=== PATIENT | female | born 1955 | race Caucasian/White ===

== ENCOUNTER 2016-10-07 20:46 | Observation (INO) | payer OTHER ==
[~2016-10-07] VITALS: Ht 165.1 cm; Wt 100.7 kg
--- NOTE | 2016-10-07 21:46 | DIAGNOSTIC IMAGING REPORT ---
PROCEDURE: XR ANKLE 3 OR 4 VIEWS - RIGHT INDICATION: TRAUMA/INJURY TECHNIQUE: Four views. COMPARISON: None. FINDINGS: External densities (splint) obscures some of the detail. There is a severely comminuted trimalleolar fracture posterior dislocation of the right ankle. There is a transverse fracture the medial malleolus extending to the posterior malleolus with moderate impaction and dorsal there is displacement. There is a comminuted oblique fracture the right distal fibular metaphysis with moderate apical angulation. There is a vertical fracture the posterior malleolus which extends cranially. IMPRESSION: 1. Severely comminuted trimalleolar fracture posterior dislocation of the right ankle.
--- NOTE | 2016-10-07 23:27 | DIAGNOSTIC IMAGING REPORT ---
PROCEDURE: XR ANKLE 1 OR 2 VIEWS - RIGHT INDICATION: POST REDUCTION TECHNIQUE: Two views. (2225 hours). COMPARISON: Compare radiographs of the right ankle earlier in the day 10/07/2016 (2115 hours). FINDINGS: Cast obscures some of the detail. Interval reduction of trimalleolar fracture dislocation which is now in near anatomic position with mild splaying of fracture fragments. IMPRESSION: 1. Interim reduction and casting of trimalleolar fracture dislocation of the right ankle (near anatomic position).
--- NOTE | 2016-10-07 23:28 | ED ORDER SUMMARY ---
..... Patient: KAREN HOWARD OrderSheet [facility] VisitID: [id number] [address] [place] [address] 61y, F Registration Date/Time: 10/07/2016 ORDER SHEET Weight: 97.0 kg (stated) Allergies: No Known Drug Allergy GENERAL ORDERS: Ankle 3 or 4V Right Urgent (20:48 10/07/2016 Tk R.NAnita verbal order read back to Jamin ROTHMAN) (Ack 21:14 Wil) (21:41 GUnger) Ice (20:59 10/07/2016 Tk HamptonNAnita verbal order read back to Jamin ROTHMAN) (20:59 Tk R.N.) Consent for: (closed fracture dislocation reduction) (21:42 10/07/2016 Marcela Abdalla) (Ack 21:51 Wil) (22:05 JQuivey R.N.) CBC w Diff Urgent (21:43 10/07/2016 Marcela Abdalla) (Ack 21:51 Wil) (22:05 JQuivey R.N.) CMP Urgent (21:43 10/07/2016 Marcela Abdalla) (Ack 21:51 Wil) (22:05 JQuivey R.N.) UA-Culture if indicated Urgent (21:43 10/07/2016 Marcela Abdalla) (Ack 21:51 Wil) (1:38 Tk R.N.) (Cancelled: Unable to Collect1:38 Tk R.N.) PT with INR Urgent (21:43 10/07/2016 Marcela Abdalla) (Ack 21:51 Wil) (22:05 JQuivey R.N.) PTT Urgent (21:43 10/07/2016 Marcela Abdalla) (Ack 21:51 Wil) (22:05 JQuivey R.N.) Consent for Sedation (21:43 10/07/2016 Marcela Abdalla) (Ack 21:51 Wil) (22:05 JQuivey R.N.) Ankle 2V Right Urgent (22:28 10/07/2016 JQuivey R.N. per protocol) (Ack 22:43 Wil) (22:44 JQuivey R.N.) Chest 2V Urgent (23:56 10/07/2016 Wil verbal order read back to Marcela Abadlla) (Ack 0:07 Wil) (0:18 GUnger) EKG - ER Stat (00:00 10/08/2016 Wil verbal order read back to Marcela Abdalla) (0:07 Wil) MEDICATION ORDERS: Iiqwebo-Cebzzb-Fdxyw Pertussis IM 0.5 mL (NOW, per protocol) (21:08 10/07/2016 Marcela Abdalla) (Ack 21:20 JQuivey R.N.) (21:31 JRomanelli R.N.) IV FLUIDS: Morphine IV 4 mg (HIGH ALERT MEDICATION, NOW) (21:07 10/07/2016 Marcela Abdalla) (Ack 21:20 JQuivey R.N.) (21:29 JRomanelli R.N.) IV Saline Lock (21:07 10/07/2016 Marcela Abdalla) (Ack 21:20 JQuivey R.N.) (21:28 JRomanelli R.N.) Propofol IV 100 (HIGH ALERT MEDICATION, NOW) (22:44 10/07/2016 JRomanelli R.N. verbal order read back to Marcela Abdalla) (22:46 JQuivey R.N.) Morphine IV 4 mg (HIGH ALERT MEDICATION, NOW) (22:48 10/07/2016 RMarsden R.N. verbal order read back to Marcela Abdalla) (22:49 RMarsden R.N.) ORDER SHEET NOTES: [Electronically signed by Jacquelin Ambriz P.A.-C (22:48 10/07/2016)] [Electronically signed by Dyllan Savage R.N. (01:38 10/08/2016)] [Electronically locked/signed by Dyllan Savage R.N. (01:38 10/08/2016)]
--- NOTE | 2016-10-07 23:28 | ED ORDER SUMMARY ---
..... Patient: KAREN HOWARD OrderSheet [facility] VisitID: [id number] [address] [place] [address] 61y, F Registration Date/Time: 10/07/2016 ORDER SHEET Weight: 97.0 kg (stated) Allergies: No Known Drug Allergy GENERAL ORDERS: Ankle 3 or 4V Right Urgent (20:48 10/07/2016 Tk R.NAnita verbal order read back to Jamin ROTHMAN) (Ack 21:14 Wil) (21:41 GUnger) Ice (20:59 10/07/2016 Tk HamptonNAnita verbal order read back to Jamin ROTHMAN) (20:59 Tk R.N.) Consent for: (closed fracture dislocation reduction) (21:42 10/07/2016 Marcela Abdalla) (Ack 21:51 Wil) (22:05 JQuivey R.N.) CBC w Diff Urgent (21:43 10/07/2016 Marcela Abdalla) (Ack 21:51 Wil) (22:05 JQuivey R.N.) CMP Urgent (21:43 10/07/2016 Marcela Abdalla) (Ack 21:51 Wil) (22:05 JQuivey R.N.) UA-Culture if indicated Urgent (21:43 10/07/2016 Marcela Abdalla) (Ack 21:51 Wil) (1:38 Tk R.N.) (Cancelled: Unable to Collect1:38 Tk R.N.) PT with INR Urgent (21:43 10/07/2016 Marcela Abdalla) (Ack 21:51 Wil) (22:05 JQuivey R.N.) PTT Urgent (21:43 10/07/2016 Marcela Abdalla) (Ack 21:51 Wil) (22:05 JQuivey R.N.) Consent for Sedation (21:43 10/07/2016 Marcela Abdalla) (Ack 21:51 Wil) (22:05 JQuivey R.N.) Ankle 2V Right Urgent (22:28 10/07/2016 JQuivey R.N. per protocol) (Ack 22:43 Wil) (22:44 JQuivey R.N.) Chest 2V Urgent (23:56 10/07/2016 Wil verbal order read back to Marcela Abdalla) (Ack 0:07 Wil) (0:18 GUnger) EKG - ER Stat (00:00 10/08/2016 Wil verbal order read back to Marcela Abdalla) (0:07 Wil) MEDICATION ORDERS: Tspnonn-Ngzjwd-Tdyxg Pertussis IM 0.5 mL (NOW, per protocol) (21:08 10/07/2016 Marcela Abdalla) (Ack 21:20 JQuivey R.N.) (21:31 JRomanelli R.N.) IV FLUIDS: Morphine IV 4 mg (HIGH ALERT MEDICATION, NOW) (21:07 10/07/2016 Marcela Abdalla) (Ack 21:20 JQuivey R.N.) (21:29 JRomanelli R.N.) IV Saline Lock (21:07 10/07/2016 Marcela Abdalla) (Ack 21:20 JQuivey R.N.) (21:28 JRomanelli R.N.) Propofol IV 100 (HIGH ALERT MEDICATION, NOW) (22:44 10/07/2016 JRomanelli R.N. verbal order read back to Marcela Abdalla) (22:46 JQuivey R.N.) Morphine IV 4 mg (HIGH ALERT MEDICATION, NOW) (22:48 10/07/2016 RMarsden R.N. verbal order read back to Marcela Abdalla) (22:49 RMarsden R.N.) ORDER SHEET NOTES: [Electronically signed by Jacquelin Ambriz P.A.-C (22:48 10/07/2016)] [Electronically signed by Dyllan Savage R.N. (01:38 10/08/2016)] [Electronically locked/signed by Dyllan Savage R.N. (01:38 10/08/2016)]
--- NOTE | 2016-10-07 23:28 | ED NURSING NOTES ---
Clinical Report - Nurses Located Within [facility] [address] [place] [place] [address] 10/07/2016 20:46 Patient: KAREN HOWARD [facility]#: [id number] TRIAGE Triage time 20:49 Oct 07 2016. Acuity: LEVEL 3. Chief Complaint: INJURY TO RIGHT ANKLE. Alert. JERICA COMA SCORE: [place] Coma Scale: 15- eyes open spontaneously (4); best verbal response- oriented x 4 (5); best motor response- obeys commands (6). Jerica Coma Scale: 15- eyes open spontaneously (4); best verbal response- oriented x 4 (5); best motor response- obeys commands (6). --20:56 Dyllan Savage R.N. 20:49 10/07/16. BP: 137/77. HR: 67. RR: 17. O2 saturation: 100% on room air. Temp: 98.5 F (oral). Pain level now: 810. --20:56 Dyllan Savage R.N. Weight: 97 kg stated. Height/Length: 65 inches Per Patient. BMI: 35.6. --20:53 Dyllan Savage R.N. Medications Multivitamins Oral. --20:54 Dyllan Savage R.N. Vitamin B-1 Oral. Vitamin c Oral. Vitamin D Oral. --20:55 Dyllan Savage R.N. Medication/allergy information source: the patient. --20:56 Dyllan Savage R.N. Allergies No Known Drug Allergy. --20:55 Dyllan Savage R.N. History Arrived by private vehicle. Historian: patient. Accompanied by family. ( (R) Ankle Pain. Pt tripped over a pot in her garden. She thinks that she might have dislocated it.). This occurred (about 1 hour ago). Mechanism of injury: sustained a twisting injury and fell. She has had trouble walking. 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 PAST MEDICAL HX: Negative. SURGERY HX: Adenoidectomy. Appendectomy. Tonsillectomy. SOCIAL HX: Heavy tobacco smoker (cigarette)- less than 1 pack per day. No alcohol use or drug use. No infectious disease exposure. ABUSE ASSESSMENT: No report of abuse. FALL RISK ASSESSMENT: Fall risk assessment completed. No fall risk identified. NUTRITIONAL RISK ASSESSMENT: The nutritional risk assessment revealed no deficiencies. FUNCTIONAL ASSESSMENT: Functional assessment: no impairments noted. LEARNING NEEDS ASSESSMENT: The learning needs assessment revealed no barriers. SKIN INTEGRITY ASSESSMENT: Skin integrity risk assessment completed. No skin integrity risk identified. --20:56 Dyllan Savage R.N. Interventions ID band on patient. To room. --20:56 Dyllan Savage R.N. PHYSICAL ASSESSMENT Ambulatory to room. GENERAL / NEURO / PSYCH: Appears in pain. She has had weakness. EXTREMITIES: Limited ROM present in the right ankle. Capillary refill is less than 2 seconds in the extremities. Extremity pulses are within normal limits. She was unable to bear weight. Right ankle: tenderness and swelling. SKIN: Skin intact. Skin is warm and dry. --20:57 Dyllan Savage R.N. NURSING PROGRESS NOTES Cold pack applied to the right ankle. Patient gowned. Reassurance given. Patient identifiers checked. Call light placed in reach. Side rails up x 2. Bed placed in lowest position. Brakes of bed on. Patient ready for evaluation- chart flagged and ED physician notified. --20:58 Dyllan Savage R.N. 21:19 10/07/2016 Morphine IVP 4 mg given over 2 minute(s) via site #1. Allergies verified, confirmed 5 rights and sedative warning given. IV patency established. IV site checked: no pain, redness, or swelling. IV flushed thoroughly pre- and post-medication administration. IVP given by RN. --21:29 Dyllan Savage R.N. 21:25 10/07/2016 Site #1 started via IV in the right forearm with an 22g angiocath, with aseptic technique and good blood return; one attempt. Blood drawn: rainbow set. Labeled in the presence of the patient and sent to the lab. Saline lock flushed with 10 mL saline. --21:28 Dyllan Savage R.N. 21:26 10/07/2016 RBICEZY-WXXWZZ-KEXCE PERTUSSIS IM 0.5 mL given. (Lot#: [id number], expiration date: 09/19/2018, Consultant Teacher: sanofi pasteur). Given in the left deltoid. Allergies verified and confirmed 5 rights. Vaccine information statement provided to the patient. --21:31 Dyllan Savage R.N. 22:29 10/07/2016 PROPOFOL IVP 100 mg given over 1 minute(s) via site #1. Allergies verified and confirmed 5 rights. IV patency established. IV site checked: no pain, redness, or swelling. IV flushed thoroughly pre- and post-medication administration. IVP given by physician (Given by Dr. Bueno). --22:46 Dyllan Terrazas R.N. 22:49 10/07/2016 Morphine IVP 4 mg given over 2 minute(s) via site #1. Allergies verified, confirmed 5 rights and sedative warning given to the patient. IV patency established. IV site checked: no pain, redness, or swelling. IV flushed thoroughly pre- and post-medication administration. IVP given by RN. --22:49 Lupe Thomason R.N. 22:29 Procedural sedation - see paper flow sheet. --22:53 Dyllan Terrazas R.N. EKG time: (2). EKG was ordered, performed by a tech and shown to the ED physician. --00:21 Hilary Sanderson 00:45 10/08/16. BP: 155/69. HR: 72. RR: 15. O2 saturation: 98% on room air. Pain level now: 06/21. --01:30 Dyllan Savage R.N. 00:00 10/08/16. BP: 114/64. HR: 67 (regular and normal rate). RR: 16. O2 saturation: 99%. Pain level now: 06/21. --01:32 Dyllan Savage R.N. DISPOSITION / DISCHARGE 01:00 10/08/16. BP: 122/60. HR: 68. RR: 17. O2 saturation: 98% on room air. Temp: 98.6 F. Pain level now: 06/21. Additional comments: (R) Ankle pain. --01:26 Dyllan Savage R.N. Departure time: 0105. --01:26 Hussein, Dyllan, R.N. 01:05. Admitted to Acute Care. Transported via stretcher. Report was given to a nurse via a phone call. Report included patient's care, treatment, medications, reviewed medication reconcilliation, and condition (including any recent changes or anticipated changes). All questions were answered. Report was acknowledged and care was transferred. (TONE Romero). Patient's personal items; items were placed in belongings bag and transported with the patient. --01:29 Dyllan Savage R.N. Locked/Released at 10/08/2016 1:38 by Dyllan Savage R.N.
--- NOTE | 2016-10-07 23:28 | ED NURSING NOTES ---
Clinical Report - Nurses [facility] [address] [place] [address] 10/07/2016 20:46 Patient: KAREN HOWARD [facility]#: [id number] TRIAGE Triage time 20:49 Oct 07 2016. Acuity: LEVEL 3. Chief Complaint: INJURY TO RIGHT ANKLE. Alert. JERICA COMA SCORE: [place] Coma Scale: 15- eyes open spontaneously (4); best verbal response- oriented x 4 (5); best motor response- obeys commands (6). Jerica Coma Scale: 15- eyes open spontaneously (4); best verbal response- oriented x 4 (5); best motor response- obeys commands (6). --20:56 Dyllan Savage R.N. 20:49 10/07/16. BP: 137/77. HR: 67. RR: 17. O2 saturation: 100% on room air. Temp: 98.5 F (oral). Pain level now: 810. --20:56 Dyllan Savage R.N. Weight: 97 kg stated. Height/Length: 65 inches Per Patient. BMI: 35.6. --20:53 Dyllan Savage R.N. Medications Multivitamins Oral. --20:54 Dyllan Savage R.N. Vitamin B-1 Oral. Vitamin c Oral. Vitamin D Oral. --20:55 Dyllan Savage R.N. Medication/allergy information source: the patient. --20:56 Dyllan Savage R.N. Allergies No Known Drug Allergy. --20:55 Dyllan Savage R.N. History Arrived by private vehicle. Historian: patient. Accompanied by family. ( (R) Ankle Pain. Pt tripped over a pot in her garden. She thinks that she might have dislocated it.). This occurred (about 1 hour ago). Mechanism of injury: sustained a twisting injury and fell. She has had trouble walking. 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 PAST MEDICAL HX: Negative. SURGERY HX: Adenoidectomy. Appendectomy. Tonsillectomy. SOCIAL HX: Heavy tobacco smoker (cigarette)- less than 1 pack per day. No alcohol use or drug use. No infectious disease exposure. ABUSE ASSESSMENT: No report of abuse. FALL RISK ASSESSMENT: Fall risk assessment completed. No fall risk identified. NUTRITIONAL RISK ASSESSMENT: The nutritional risk assessment revealed no deficiencies. FUNCTIONAL ASSESSMENT: Functional assessment: no impairments noted. LEARNING NEEDS ASSESSMENT: The learning needs assessment revealed no barriers. SKIN INTEGRITY ASSESSMENT: Skin integrity risk assessment completed. No skin integrity risk identified. --20:56 Dyllan Savage R.N. Interventions ID band on patient. To room. --20:56 Dyllan Savage R.N. PHYSICAL ASSESSMENT Ambulatory to room. GENERAL / NEURO / PSYCH: Appears in pain. She has had weakness. EXTREMITIES: Limited ROM present in the right ankle. Capillary refill is less than 2 seconds in the extremities. Extremity pulses are within normal limits. She was unable to bear weight. Right ankle: tenderness and swelling. SKIN: Skin intact. Skin is warm and dry. --20:57 Dyllan Savage R.N. NURSING PROGRESS NOTES Cold pack applied to the right ankle. Patient gowned. Reassurance given. Patient identifiers checked. Call light placed in reach. Side rails up x 2. Bed placed in lowest position. Brakes of bed on. Patient ready for evaluation- chart flagged and ED physician notified. --20:58 Dyllan Savage R.N. 21:19 10/07/2016 Morphine IVP 4 mg given over 2 minute(s) via site #1. Allergies verified, confirmed 5 rights and sedative warning given. IV patency established. IV site checked: no pain, redness, or swelling. IV flushed thoroughly pre- and post-medication administration. IVP given by RN. --21:29 Dyllan Savage R.N. 21:25 10/07/2016 Site #1 started via IV in the right forearm with an 22g angiocath, with aseptic technique and good blood return; one attempt. Blood drawn: rainbow set. Labeled in the presence of the patient and sent to the lab. Saline lock flushed with 10 mL saline. --21:28 Dyllan Savage R.N. 21:26 10/07/2016 IURNGAW-PKOBBY-GLSRQ PERTUSSIS IM 0.5 mL given. (Lot#: [id number], expiration date: 09/19/2018, Master At Arms: sanofi pasteur). Given in the left deltoid. Allergies verified and confirmed 5 rights. Vaccine information statement provided to the patient. --21:31 Dyllan Savage R.N. 22:29 10/07/2016 PROPOFOL IVP 100 mg given over 1 minute(s) via site #1. Allergies verified and confirmed 5 rights. IV patency established. IV site checked: no pain, redness, or swelling. IV flushed thoroughly pre- and post-medication administration. IVP given by physician (Given by Dr. Bueno). --22:46 Dyllan Terrazas R.N. 22:49 10/07/2016 Morphine IVP 4 mg given over 2 minute(s) via site #1. Allergies verified, confirmed 5 rights and sedative warning given to the patient. IV patency established. IV site checked: no pain, redness, or swelling. IV flushed thoroughly pre- and post-medication administration. IVP given by RN. --22:49 Lupe Thomason R.N. 22:29 Procedural sedation - see paper flow sheet. --22:53 Dyllan Terrazas R.N. EKG time: (2). EKG was ordered, performed by a tech and shown to the ED physician. --00:21 Hilary Sanderson 00:45 10/08/16. BP: 155/69. HR: 72. RR: 15. O2 saturation: 98% on room air. Pain level now: 06/21. --01:30 Dyllan Savage R.N. 00:00 10/08/16. BP: 114/64. HR: 67 (regular and normal rate). RR: 16. O2 saturation: 99%. Pain level now: 06/21. --01:32 Dyllan Savage R.N. DISPOSITION / DISCHARGE 01:00 10/08/16. BP: 122/60. HR: 68. RR: 17. O2 saturation: 98% on room air. Temp: 98.6 F. Pain level now: 06/21. Additional comments: (R) Ankle pain. --01:26 Dyllan Savage R.N. Departure time: 0105. --01:26 Hussein, Dyllan, R.N. 01:05. Admitted to Acute Care. Transported via stretcher. Report was given to a nurse via a phone call. Report included patient's care, treatment, medications, reviewed medication reconcilliation, and condition (including any recent changes or anticipated changes). All questions were answered. Report was acknowledged and care was transferred. (TONE Romero). Patient's personal items; items were placed in belongings bag and transported with the patient. --01:29 Dyllan Savage R.N. Locked/Released at 10/08/2016 1:38 by Dyllan Savage R.N.
--- NOTE | 2016-10-07 23:28 | ED CLINICAL REPORT ---
Clinical Report - Physicians/Mid Levels [facility] [address] [place] [address] 10/07/2016 20:46 [id number] Time Seen: 2229. PROGRESS AND PROCEDURES Reduction of Dislocated Ankle: Time: 2234Oct 07 2016. Time-out completed immediately before the procedure. IV established. O2 administered. Placed on pulse oximeter and vehicle monitor technician. Neurovascular exam intact pre-procedure and dorsalis pedis pulse present pre-procedure. Given Morphine and Propofol. The right ankle was reduced with the foot dorsiflexed, pressure on the distal tibia downward and movement of the foot anteriorly. Reassessed post-procedure: neurovascular status intact; exam indicates reduction; confirmed reduction on X-ray; posterior splint applied. Please see Procedural Sedation NOTE For further details. Course of Care: PROCEDURE NOTE ONLY. (Electronically signed by Jacquelin Ambriz P.A.-C 10/07/2016 22:48)
--- NOTE | 2016-10-07 23:28 | ED CLINICAL REPORT ---
Clinical Report - Physicians/Mid Levels [facility] [address] [place] [address] 10/07/2016 20:46 [id number] Time Seen: 2229. PROGRESS AND PROCEDURES Reduction of Dislocated Ankle: Time: 2234Oct 07 2016. Time-out completed immediately before the procedure. IV established. O2 administered. Placed on pulse oximeter and electronic device monitor. Neurovascular exam intact pre-procedure and dorsalis pedis pulse present pre-procedure. Given Morphine and Propofol. The right ankle was reduced with the foot dorsiflexed, pressure on the distal tibia downward and movement of the foot anteriorly. Reassessed post-procedure: neurovascular status intact; exam indicates reduction; confirmed reduction on X-ray; posterior splint applied. Please see Procedural Sedation NOTE For further details. Course of Care: PROCEDURE NOTE ONLY. (Electronically signed by Jacquelin Ambriz P.A.-C 10/07/2016 22:48)
[2016-10-08] VITALS (13 sets, daily range): BP systolic 101–134; BP diastolic 54–76
--- NOTE | 2016-10-08 00:45 | DIAGNOSTIC IMAGING REPORT ---
PROCEDURE: XR CHEST 1 VIEW INDICATION: Preop right ankle surgery. TECHNIQUE: Portable AP view (0010 hours). COMPARISON: None. FINDINGS: Allowing for overlying wires and electrodes, lungs are clear. Heart and mediastinum are normal. Thorax is normal. IMPRESSION: 1. Negative chest.
--- NOTE | 2016-10-08 01:38 | Progress Note ---
Subjective General Admission History and Physical Examination Patient Name: Ashli Davalos Admission Date: 10/08/2016 Primary Care Provider: Dr. Patrick Attending Physician: Gerardo Muniz M.D. Admitting Physician: Ameya Navarro MD Code Status: full code Room: SUBJECTIVE Historian: Patient as self Reliability: good Chief Complaint: right ankle and foot pain History of Present Illness: The patient is a 61-year-old white female with a past medical history of obstructive lung disease/asthma, prolonged smoking history presenting to the [facility] with right foot and ankle pain. Patient was of her usual state of health at her home. Patient had been gardening all day. Patient states that she stepped awkwardly lost her foot in an fill causing injury to her foot and ankle. Patient was seen in the [facility]. EGD where x-ray of the lower extremity was done , showed a trimalleolar fracture. Patient was consulted by orthopedic surgery who recommended orthopedic procedure to stabilize the joint and bony structure. Patient is admitted under the hospitalist team with a diagnosis of obstructive airway disease, smoking history and a trimalleolar fracture on the right side. Patient reports this is a first significant trauma in her life. Patient is profound stress and at this time. 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 Patient is a remote history of asthma, smoking history of up to 40 years. He has been ambulatory without support up until this recent injury. Patient has had no significant cardiac, GI, neurologic deficiencies. PAST MEDICAL HISTORY Illnesses: 1. asthma 2. Smoking hx Allergies: 1. none Medications: 1. none Surgery: 1. tonsilectomy 2 .Colonoscopy Injuries: 1. Recent injury to the right foot and ankle Hospitalizations: 1. Previous hospitalization FAMILY HISTORY Parents: 1. Father, 2. Mother, mother age 95. Currently living with patient. Children: 1. Minimal contact with her son SOCIAL HISTORY 1. Marital Status: 2. Orthodox: Unknown 3. Education: High school plus 4. 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 Occupational health exposures: Unknown HABITS 1. Tobacco: Half pack per day for 30+ years 2. Drugs: None 3. Alcohol: Social 4. Caffeine: Undetermined HEALTH SUPERVISION Item/Test Unknown. Records not available Seen by PCP [place] IMMUNIZATIONS: ADVANCED DIRECTIVES: 1. Living well: 2. POLST: None 3. Code Status: Full code 4. Durable Power Roller Leveler [facility] 5. Donor card: Donor card REVIEW OF SYSTEMS Remarkable for those things stated in the history of present illness and past medical history. The review of system completed with the following notable findings: Constitutional Denies: Sweats. Eyes Denies: Redness. Respiratory Wheezing. Cardiovascular Palpitations. Musculoskeletal Leg Pain. Physical Exam General Appearance Oriented X3, Cooperative, Mild distress, ANXIOUS HEENT EOMI Lungs Clear to auscultation, Normal air movement Cardiovascular Normal S1 and S2, No murmurs, gallops, rubs Abdomen Soft, No tenderness Extremities right side fracture; normal pulses. Skin No Breakdown Neurological No lateralizing signs Psych/Mental Status Anxious LAB Results Laboratory Tests 10/07 2114 Chemistry Plasma Sodium (136 - 145 mmol/L) 140 Plasma Potassium (3.5 - 5.1 mmol/L) 3.4 Plasma Chloride (98 - 107 mmol/L) 104 CO2 (Enzymatic) (21 - 32 mmol/L) 25 BUN (7 - 18 mg/dL) 18 Creatinine (0.6 - 1.3 mg/dL) 1.0 Est GFR ( Amer) (mL/min) >60 Est GFR (Non-Af Amer) (mL/min) >60 Glucose (70 - 110 mg/dL) 91 Plasma Calcium (8.5 - 10.1 mg/dL) 9.0 Total Bilirubin (0.0 - 1.0 mg/dL) 0.4 AST (15 - 37 U/L) 21 ALT (12 - 78 U/L) 24 Alkaline Phosphatase (46 - 116 U/L) 123 Total Protein (6.4 - 8.2 g/dL) 7.6 Albumin (3.3 - 5.0 g/dL) 3.9 Coagulation INR (0.8 - 1.2) 1.0 APTT (24 - 34 SECONDS) 30 Hematology WBC (4.5 - 11.5 K/uL) 10.1 RBC (4.00 - 5.20 M/uL) 4.63 Hgb (12.0 - 16.0 gm/dL) 13.8 Hct (36.0 - 46.0 %) 40.7 MCV (80 - 100 fL) 88 MCH (26 - 34 pg) 30 RDW (11.6 - 14.8 %) 13.8 Neut % (Auto) (50 - 75 %) 68.8 Lymph % (Auto) (25 - 40 %) 22.5 [place] % (Auto) (3 - 14 %) 6.1 Eos % (Auto) (0 - 4 %) 2.1 Baso % (Auto) (0 - 2 %) 0.5 Plt Count, EDTA (150 - 400 K/uL) 205 PUBS MCHC (31 - 37 g/dL) 34 Assessment and Plan Problem List 1. Pain in right ankle Plan 61-year-old female right-sided trimalleolar fracture; consulted by the surgery. Plan and perform stabilization procedure by tomorrow. Pain control. We'll give 2-4 mg, morphine 4-6 hours as needed for pain. Toradol will be given around the clock vaccinated Patient was given Ativan with profound anxiousness. Patient will be placed on telemetry overnight. Watch for any abnormal cardiac arrhythmia or deferring runs, Smoking cessation encouraged. Remote history of asthma which can be watched and followed. 2. Obstructive airway disease Plan Childhood history of asthma, currently controlled. Patient has not used albuterol for multiple years. Patient is with normal saturations, normal breath sounds. We will watch and follow 3. Trimalleolar fracture of right ankle Plan Ankle fracture in the right side. Consulted by cardiology. Needing preoperative recommendations. Cardiopulmonary exam is normal EKG is normal Follow the telemetry trend overnight. Patient is cleared from a cardiac pulmonary perspective for low cardiac risk orthopedic procedure. Once procedures performed. Patient should return to bedside for a full review 4. Smoking Plan Smoking cessation encouraged. Call - 1 [phone] now. Consider alternatives for nicotine replacement E&M Codes Rounding: Obsv-Comp/High/15403 Admission: Obsv-Comp/High/76959
--- NOTE | 2016-10-08 01:38 | Progress Note ---
Subjective General Admission History and Physical Examination Patient Name: Ashli Davalos Admission Date: 10/08/2016 Primary Care Provider: Dr. Patrick Attending Physician: Gerardo Muniz M.D. Admitting Physician: Ameya Navarro MD Code Status: full code Room: SUBJECTIVE Historian: Patient as self Reliability: good Chief Complaint: right ankle and foot pain History of Present Illness: The patient is a 61-year-old white female with a past medical history of obstructive lung disease/asthma, prolonged smoking history presenting to the [facility] with right foot and ankle pain. Patient was of her usual state of health at her home. Patient had been gardening all day. Patient states that she stepped awkwardly lost her foot in an fill causing injury to her foot and ankle. Patient was seen in the [facility]. EGD where x-ray of the lower extremity was done , showed a trimalleolar fracture. Patient was consulted by orthopedic surgery who recommended orthopedic procedure to stabilize the joint and bony structure. Patient is admitted under the hospitalist team with a diagnosis of obstructive airway disease, smoking history and a trimalleolar fracture on the right side. Patient reports this is a first significant trauma in her life. Patient is profound stress and at this time. 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 Patient is a remote history of asthma, smoking history of up to 40 years. He has been ambulatory without support up until this recent injury. Patient has had no significant cardiac, GI, neurologic deficiencies. PAST MEDICAL HISTORY Illnesses: 1. asthma 2. Smoking hx Allergies: 1. none Medications: 1. none Surgery: 1. tonsilectomy 2 .Colonoscopy Injuries: 1. Recent injury to the right foot and ankle Hospitalizations: 1. Previous hospitalization FAMILY HISTORY Parents: 1. Father, 2. Mother, mother age 95. Currently living with patient. Children: 1. Minimal contact with her son SOCIAL HISTORY 1. Marital Status: 2. Restorationism: Unknown 3. Education: High school plus 4. 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 Occupational health exposures: Unknown HABITS 1. Tobacco: Half pack per day for 30+ years 2. Drugs: None 3. Alcohol: Social 4. Caffeine: Undetermined HEALTH SUPERVISION Item/Test Unknown. Records not available Seen by PCP [place] IMMUNIZATIONS: ADVANCED DIRECTIVES: 1. Living well: 2. POLST: None 3. Code Status: Full code 4. Durable Power Enterprise Infrastructure Architect [facility] 5. Donor card: Donor card REVIEW OF SYSTEMS Remarkable for those things stated in the history of present illness and past medical history. The review of system completed with the following notable findings: Constitutional Denies: Sweats. Eyes Denies: Redness. Respiratory Wheezing. Cardiovascular Palpitations. Musculoskeletal Leg Pain. Physical Exam General Appearance Oriented X3, Cooperative, Mild distress, ANXIOUS HEENT EOMI Lungs Clear to auscultation, Normal air movement Cardiovascular Normal S1 and S2, No murmurs, gallops, rubs Abdomen Soft, No tenderness Extremities right side fracture; normal pulses. Skin No Breakdown Neurological No lateralizing signs Psych/Mental Status Anxious LAB Results Laboratory Tests 10/07 2114 Chemistry Plasma Sodium (136 - 145 mmol/L) 140 Plasma Potassium (3.5 - 5.1 mmol/L) 3.4 Plasma Chloride (98 - 107 mmol/L) 104 CO2 (Enzymatic) (21 - 32 mmol/L) 25 BUN (7 - 18 mg/dL) 18 Creatinine (0.6 - 1.3 mg/dL) 1.0 Est GFR ( Amer) (mL/min) >60 Est GFR (Non-Af Amer) (mL/min) >60 Glucose (70 - 110 mg/dL) 91 Plasma Calcium (8.5 - 10.1 mg/dL) 9.0 Total Bilirubin (0.0 - 1.0 mg/dL) 0.4 AST (15 - 37 U/L) 21 ALT (12 - 78 U/L) 24 Alkaline Phosphatase (46 - 116 U/L) 123 Total Protein (6.4 - 8.2 g/dL) 7.6 Albumin (3.3 - 5.0 g/dL) 3.9 Coagulation INR (0.8 - 1.2) 1.0 APTT (24 - 34 SECONDS) 30 Hematology WBC (4.5 - 11.5 K/uL) 10.1 RBC (4.00 - 5.20 M/uL) 4.63 Hgb (12.0 - 16.0 gm/dL) 13.8 Hct (36.0 - 46.0 %) 40.7 MCV (80 - 100 fL) 88 MCH (26 - 34 pg) 30 RDW (11.6 - 14.8 %) 13.8 Neut % (Auto) (50 - 75 %) 68.8 Lymph % (Auto) (25 - 40 %) 22.5 [place] % (Auto) (3 - 14 %) 6.1 Eos % (Auto) (0 - 4 %) 2.1 Baso % (Auto) (0 - 2 %) 0.5 Plt Count, EDTA (150 - 400 K/uL) 205 PUBS MCHC (31 - 37 g/dL) 34 Assessment and Plan Problem List 1. Pain in right ankle Plan 61-year-old female right-sided trimalleolar fracture; consulted by the surgery. Plan and perform stabilization procedure by tomorrow. Pain control. We'll give 2-4 mg, morphine 4-6 hours as needed for pain. Toradol will be given around the clock vaccinated Patient was given Ativan with profound anxiousness. Patient will be placed on telemetry overnight. Watch for any abnormal cardiac arrhythmia or deferring runs, Smoking cessation encouraged. Remote history of asthma which can be watched and followed. 2. Obstructive airway disease Plan Childhood history of asthma, currently controlled. Patient has not used albuterol for multiple years. Patient is with normal saturations, normal breath sounds. We will watch and follow 3. Trimalleolar fracture of right ankle Plan Ankle fracture in the right side. Consulted by cardiology. Needing preoperative recommendations. Cardiopulmonary exam is normal EKG is normal Follow the telemetry trend overnight. Patient is cleared from a cardiac pulmonary perspective for low cardiac risk orthopedic procedure. Once procedures performed. Patient should return to bedside for a full review 4. Smoking Plan Smoking cessation encouraged. Call - 1 [phone] now. Consider alternatives for nicotine replacement E&M Codes Rounding: Obsv-Comp/High/69512 Admission: Obsv-Comp/High/93038
--- NOTE | 2016-10-08 01:39 | ED MAR SUMMARY ---
..... Medication Administration Record [facility] [address] [place] [address] Patient: KAREN HOWARD Visit ID: [id number] 61y, F Weight: 97.0 kg Height/Length: 65 in BMI: 35.6 ALLERGIES: No Known Drug Allergy Given 21:19 10/07/2016 Dyllan Savage RAnitaNAnita Medication Administered: MORPHINE [IVP], Dose: 4 mg IVP over 2 minute(s), Site: #1. Medication Ordered: Morphine IV 4 mg (HIGH ALERT MEDICATION, NOW). Given 21:10/07/2016 Dyllan Savage RAnitaNAnita Medication Administered: HIPLUOY-CYJNFP-XJMLG PERTUSSIS [IM], Dose: 0.5 mL IM. Medication Ordered: Xcjuekg-Rorkmv-Msunx Pertussis IM 0.5 mL (NOW, per protocol). Given 22:10/07/2016 Dyllan Terrazas RSahra Medication Administered: PROPOFOL [IVP], Dose: 100 mg IVP over 1 minute(s), Site: #1 right forearm. Medication Ordered: Propofol IV 100 (HIGH ALERT MEDICATION, NOW). Given 22:49 10/07/2016 Lupe Thomason R.N. Medication Administered: MORPHINE [IVP], Dose: 4 mg IVP over 2 minute(s), Site: #1 right forearm. Medication Ordered: Morphine IV 4 mg (HIGH ALERT MEDICATION, NOW).
--- NOTE | 2016-10-08 01:39 | ED MED RECONCILIATION SUMMARY ---
Patient: GUDELIAARTYKAREN Medication Reconciliation Report [facility] VisitID: [id number] [address] [place] [address] 61y, F Registration Date/Time: 10/07/2016 Weight: 97.0 kg Height/Length: 65 in. BMI: 35.6 ALLERGIES: No Known Drug Allergy The patient's Home Medications are listed below: THE FOLLOWING MEDICATIONS NEED TO BE RECONCILED: Multivitamins Oral Vitamin B-1 Oral Vitamin c Oral Vitamin D Oral The source(s) of the original Home Medication information: patient The following Medications were given to the patient in the Emergency Department: Morphine [IVP] IVP 4 mg, administered: 10/07/2016 9:19:00 PM [id number]-NCMTAJ-FTGOV PERTUSSIS [IM] IM 0.5 mL, administered: 10/07/2016 9:26:00 PM PROPOFOL [IVP] IVP 100 mg, administered: 10/07/2016 10:29:00 PM Morphine [IVP] IVP 4 mg, administered: 10/07/2016 10:49:00 PM The following Medications were prescribed to the patient: None.
--- NOTE | 2016-10-08 01:39 | ED MAR SUMMARY ---
..... Medication Administration Record [facility] [address] [place] [address] Patient: KAREN HOWARD Visit ID: [id number] 61y, F Weight: 97.0 kg Height/Length: 65 in BMI: 35.6 ALLERGIES: No Known Drug Allergy Given 21:19 10/07/2016 Dyllan Savage RAniatNAnita Medication Administered: MORPHINE [IVP], Dose: 4 mg IVP over 2 minute(s), Site: #1. Medication Ordered: Morphine IV 4 mg (HIGH ALERT MEDICATION, NOW). Given 21:10/07/2016 Dyllan Savage RAnitaNAnita Medication Administered: NDYQHBJ-GPEHFF-ZVWSS PERTUSSIS [IM], Dose: 0.5 mL IM. Medication Ordered: Roymvno-Wihklq-Cujtg Pertussis IM 0.5 mL (NOW, per protocol). Given 22:10/07/2016 Dyllan Terrazas RSahra Medication Administered: PROPOFOL [IVP], Dose: 100 mg IVP over 1 minute(s), Site: #1 right forearm. Medication Ordered: Propofol IV 100 (HIGH ALERT MEDICATION, NOW). Given 22:49 10/07/2016 Lupe Thomason R.N. Medication Administered: MORPHINE [IVP], Dose: 4 mg IVP over 2 minute(s), Site: #1 right forearm. Medication Ordered: Morphine IV 4 mg (HIGH ALERT MEDICATION, NOW).
--- NOTE | 2016-10-08 01:39 | ED MED RECONCILIATION SUMMARY ---
Patient: GUDELIAARTYKAREN Medication Reconciliation Report [facility] VisitID: [id number] [address] [place] [address] 61y, F Registration Date/Time: 10/07/2016 Weight: 97.0 kg Height/Length: 65 in. BMI: 35.6 ALLERGIES: No Known Drug Allergy The patient's Home Medications are listed below: THE FOLLOWING MEDICATIONS NEED TO BE RECONCILED: Multivitamins Oral Vitamin B-1 Oral Vitamin c Oral Vitamin D Oral The source(s) of the original Home Medication information: patient The following Medications were given to the patient in the Emergency Department: Morphine [IVP] IVP 4 mg, administered: 10/07/2016 9:19:00 PM CPOZGFG-RQIVQF-LQZTD PERTUSSIS [IM] IM 0.5 mL, administered: 10/07/2016 9:26:00 PM PROPOFOL [IVP] IVP 100 mg, administered: 10/07/2016 10:29:00 PM Morphine [IVP] IVP 4 mg, administered: 10/07/2016 10:49:00 PM The following Medications were prescribed to the patient: None.
--- NOTE | 2016-10-08 01:50 | CONSULTATION REPORT ---
DATE OF CONSULTATION: 10/08/2016 REFERRING PHYSICIAN: Ameya Navarro MD CONSULTING PHYSICIAN: Deandre Sauer MD CHIEF COMPLAINT: 1. Pain in the right ankle, inability to walk HISTORY OF PRESENT ILLNESS: This 61-year-old woman was gardening with her 95- year-old mother. As she went around a table, she tripped over a garden pot and fell, suffering severe pain in the ankle and inability to get up. She was brought to our hospital and in the emergency department was noted to have a trimalleolar ankle fracture posteriorly dislocated. The emergency department physician reduced the fracture and the dislocation and placed her in a splint on the leg. She is being admitted for the care of a trimalleolar ankle fracture. Prior to falling, she was an independent ambulator, not requiring the use of a walking aid. She had not been working, and she was caring for her mother. MEDICAL/SURGICAL HISTORY: Past medical history: She denies any current health problems. She said she had been an asthmatic but has not needed an inhaler for 10-15 years. Surgical history: She has had a closed reduction of a left hip dislocation, which occurred traumatically while horseback riding years ago. She has had an appendectomy 3 years and has had a colonoscopy and vaginal childbirth. In one of the 4 anesthesias, she was told they had trouble waking her up. MEDICATIONS: 1. She takes only vitamins. ALLERGIES: 1. SHE DENIES ANY ALLERGIES TO MEDICATIONS. SOCIAL HISTORY: She denies any current health problems. She said she had been an asthmatic, but has not needed an inhaler for 10 -- 15 years. REVIEW OF SYSTEMS: She denies a history of seizure, stroke, parkinsonism, or paralysis of any of her extremities. She denies hypertension, ischemic heart disease, angina, congestive heart failure, or fluid in the lungs. She said that, when she drinks too much coffee, she gets palpitations. She denies pneumonia or tuberculosis, but does have a history of asthma. She is a 8-zpqo-tye-day smoker since age 15, but there were a few years where she quit, but she has gone back to it in the last 10 years. She denies a history of renal insufficiency. She denies a history of kidney disease. She denies peptic ulcer, acid reflux, or hepatitis A, B or C. She denies diabetes or thyroid disease. She denies a history of anemia. PHYSICAL EXAMINATION: GENERAL: Reveals a well-nourished, well-developed woman, alert, oriented, and not in acute distress. She had been given morphine for her pain intravenously. HEENT: Her head is normocephalic, atraumatic. NECK: No audible bruits. HEART: Regular, without murmur, rub, or gallop. LUNGS: Clear to auscultation. ABDOMEN: Without tenderness, masses, or organomegaly. EXTREMITIES: Right leg has a superficial abrasion on the anterior distal tibia. There is a good dorsalis pedis pulse palpable. IMPRESSION: 1. A 61-year-old woman with a bimalleolar ankle fracture with a vertical split and comminution of the medial malleolus and an oblique distal fibular fracture. 2. History of asthma earlier in life. 3. A 38-awko-tuby smoker. PLAN: She is being admitted by Dr. Navarro of Internal Medicine and he will perform a preoperative medical evaluation of her. If all is satisfactory, then she will undergo surgery tomorrow. I discussed the surgery with her and its risks and benefits and alternatives. No guarantees were made of a perfectly normal ankle. I told her it would take 4-6 months for her to walk comfortably. I pointed out that she may require removal of the hardware because it would be irritating just under the skin.
--- NOTE | 2016-10-08 07:13 | ED DISCHARGE INSTRUCTIONS ---
Patient: KAREN HOWARD General Instructions [facility] VisitID: [id number] [address] [place] [address] 61y, F Registration Date/Time: 10/07/2016 acute closed right trimaleolar fracture. (Electronically signed by Harrison Bueno Dr. 10/08/2016 7:12) (Electronically signed by Jacquelin Ambriz P.A.-C 10/07/2016 22:48)
--- NOTE | 2016-10-08 07:13 | ED DISCHARGE INSTRUCTIONS ---
Patient: KAREN HOWARD General Instructions [facility] VisitID: [id number] [address] [place] [address] 61y, F Registration Date/Time: 10/07/2016 acute closed right trimaleolar fracture. (Electronically signed by Harrison Bueno Dr. 10/08/2016 7:12) (Electronically signed by Jacquelin Ambriz P.A.-C 10/07/2016 22:48)
--- NOTE | 2016-10-08 16:04 | Operative Report ---
Operative Report Date of Surgery: 10/08/16 Preoperate Diagnosis: trimalleolar ankle fracture, right Postoperative Diagnosis: trimalleolar ankle fracture Surgeon: Deandre Sauer MD Procedure Performed: ORIF of bimalleolar right ankle fracture Anesthesia: general by ETT Indications: fracture dislocation of the ankle, right Surgical Technique: Bood loss: negligible tourniquet 82 min specimens: none Findings: there was an oblique fracture fibula and a buckle fracture of the anterior half of the medial malleous which was fixed in situ with two lag screw to prevent further displacement. I could not move/correct the buckle fracture with full manual force and after sharply dissecting the periosteum off the bone there was no clear fracture line and I was not willing to try to take down the anterior half with an osteotome for fear of comminuting it with the osteotome by virtue of not following the the deep surface of the fracture with the osteotome, or worse causing displacement of the posterior half of the malleolus. Implants: [employer] 6-hole lateral fibula plate and screws and two 4.0 cannulated distally threaded screws. The woulds were closed with absorbable suture except the skin was close with douglas. An extremely well padded cast was placed over a sterile dressing. She was awakened and left the OR in good condition.
--- NOTE | 2016-10-08 16:07 | DIAGNOSTIC IMAGING REPORT ---
PROCEDURE: XR FLUOROSCOPY OVER 1 HOUR INDICATION: ORIF ANKLE TECHNIQUE: C-arm fluoroscopy provided to Dr. Sauer for ORIF Fluoroscopy time 0.32 minutes 1.4 mGy). COMPARISON: None. FINDINGS: AP and two lateral C-arm views. A side plate and seven screws are fixing the lateral malleolar fracture. The medial malleolus is fixed with two long screws. IMPRESSION: 1. C-arm fluoroscopy for ORIF performed by
[2016-10-09 02:51] VITALS: BP 121/71
--- NOTE | 2016-10-09 06:42 | Progress Note ---
Subjective General Patient seen at bedside this morning doing well. Patient had successful lower extremity orthopedic procedure. Fracture was reduced and dislocation reduced patient currently in a cast. Patient in control. Patient will follow-up with her primary care physician Dr. Green and also with orthopedics. Patient to be assessed by physical therapy and then likely sent home. Constitutional Other. Eyes Denies: Redness. ENT Denies: Nose Pain, Nasal Discharge. Respiratory Denies: SOB w/exertion, Wheezing. Cardiovascular Denies: Palpitations, Orthopnea. Musculoskeletal Leg Pain, Foot Pain. Physical Exam Vital Signs / I&Os Vital Signs Date Time Temp Pulse Resp B/P Pulse O2 O2 Flow FiO2 Ox Delivery Rate 10/09 0251 98.8 67 17 121/71 93 Nasal 2.0 Cannula 10/09 0042 2.0 10/08 2219 Nasal 2.0 Cannula 10/08 2210 98.4 96 20 110/56 97 Room Air 2.0 05/30 2130 98.4 62 16 108/65 89 Room Air 0.0 05/30 2030 66 16 110/56 94 Room Air 0.0 05/30 1930 98.4 57 16 108/62 92 Room Air 0.0 05/30 1830 62 16 116/72 95 Room Air 2.0 05/30 1811 66 18 107/62 96 Room Air 2.0 05/30 1806 2.0 05/30 1804 90 Room Air 05/30 1734 98.4 58 20 109/67 94 Room Air 0.0 05/30 1715 98.4 71 20 111/67 99 Face Tent 13.0 05/30 1702 98.8 69 18 121/62 98 Face Tent 13.0 05/30 1647 98.8 73 16 127/68 100 Face Tent 13.0 05/30 1635 86 13 125/66 97 Face Tent 15.0 05/30 1630 99.3 80 10 128/86 97 Face Tent 15.0 05/30 1625 87 12 127/62 100 Face Tent 15.0 05/30 1620 54 13 138/60 98 Face Tent 15.0 05/30 1615 44 16 109/60 98 Face Tent 15.0 05/30 1610 62 17 137/67 99 Face Tent 15.0 05/30 1605 66 18 136/52 99 Face Tent 15.0 05/30 1600 69 16 124/63 97 Face Tent 15.0 05/30 1555 66 15 106/53 95 Face Tent 15.0 10/08 1550 78 18 110/57 92 Nasal 5.0 Cannula 10/08 1545 74 18 119/57 95 Mask 10.0 10/08 1540 76 17 115/59 93 Mask 10.0 10/08 1535 81 14 87/51 89 Nasal 5.0 Cannula 10/08 1531 100.4 70 18 109/66 84 10/08 1044 98.8 63 16 103/66 91 Nasal 0.0 Cannula 10/08 0809 2.0 10/08 0759 2.0 I&O 10/08 0800 10/08 1600 10/09 0000 Intake Total 531 378 4583 Output Total 1010 450 Balance 455 -215 860 General Appearance Oriented X3, Cooperative Lungs Clear to auscultation, Normal air movement Neck Supple, No JVD Cardiovascular Normal S1 and S2, No murmurs, gallops, rubs Abdomen Soft, No tenderness Extremities Normal pulses Neurological Cranial nerves intact Psych/Mental Status Mental status normal LAB Results Laboratory Tests 10/08 10/09 0840 0500 Chemistry Plasma Sodium (136 - 145 mmol/L) 143 Plasma Potassium (3.5 - 5.1 mmol/L) 4.2 Plasma Chloride (98 - 107 mmol/L) 111 CO2 (Enzymatic) (21 - 32 mmol/L) 23 BUN (7 - 18 mg/dL) 11 Creatinine (0.6 - 1.3 mg/dL) 0.7 Est GFR ( Amer) (mL/min) >60 Est GFR (Non-Af Amer) (mL/min) >60 Glucose (70 - 110 mg/dL) 90 Plasma Calcium (8.5 - 10.1 mg/dL) 8.3 Plasma Magnesium Cancelled Coagulation INR Cancelled Hematology WBC Cancelled RBC Cancelled Hgb Cancelled Hct Cancelled MCV Cancelled MCH Cancelled RDW Cancelled Plt Count, EDTA Cancelled PUBS MCHC Cancelled Assessment and Plan Problem List 1. Pain in right ankle Plan Pain in the right ankle related to a fall in fractured trimalleolar fracture. Patient has been stabilized. Pain control. Sent home on by mouth hydrocodone. Patient needs follow-up with primary care and with physical therapy Is being assessed by Physical for positional transfers. Patient is to be seen by orthopedics prior to discharge. 2. Obstructive airway disease Plan A shortened obstructive airway disease. Long-standing asthma well-controlled and stable patient normal saturations and normal vitals. 3. Trimalleolar fracture of right ankle Plan Seen and examined by orthopedics. Patient with a stable fracture site. Surgical plating and surgical procedure was without complication. 4. Smoking Plan Encouraged smoking cessation. He has been given a plan of action for smoking cessation. Current status: Fair Anticipated discharge date: Today's date Anticipated discharge placement: Home Patient care time: Time spent in chart review, patient interview, physical exam, CPOE, and care documentation: 20 minutes Visit to patient today: 2 Complexity of care: Mild E&M Codes Rounding: Obsv-Comp/Moderate/[id number]
[2016-10-09 07:12] VITALS: BP 107/57
[2016-10-09 11:37] VITALS: BP 115/56
--- NOTE | 2016-10-09 14:37 | Provider's Discharge Care Plan ---
Problem, Goal, Plan Problem List 1. Pain in right ankle Goals: Improve function, Increase independence, Therapeutic intervention Instructions: Follow up as needed, Take meds as directed 2. Obstructive airway disease Goals: Improve disease control, Screening Instructions: Follow up as directed 3. Trimalleolar fracture of right ankle Goals: Improve disease control, Increase independence Instructions: Follow up as directed 4. Smoking Goals: Improve nutrition status, Prevent disease progress Instructions: Stop smoking
[2016-10-09 14:38] VITALS: BP 133/67
--- NOTE | 2016-10-09 16:41 | Progress Note ---
Subjective General Post-op day #1. Pain much improved, she has been switched to oral analgesics. She started PT today but could not do stairs, at today's session with PT. Constitutional Other (Feels less pain.). Physical Exam Vital Signs / I&Os Vital Signs Date Time Temp Pulse Resp B/P Pulse O2 O2 Flow FiO2 Ox Delivery Rate 10/09 1438 98.8 77 20 133/67 93 Room Air 10/09 1137 98.4 64 115/56 93 Nasal 0.0 Cannula 10/09 0830 Nasal 2.0 Cannula 10/09 0800 2.0 10/09 0712 99.3 65 20 107/57 91 Nasal 2.0 Cannula 10/09 0251 98.8 67 17 121/71 93 Nasal 2.0 Cannula 10/09 0042 2.0 10/08 2219 Nasal 2.0 Cannula 10/08 2210 98.4 96 20 110/56 97 Room Air 2.0 10/08 2130 98.4 62 16 108/65 89 Room Air 0.0 10/08 2030 66 16 110/56 94 Room Air 0.0 10/08 1930 98.4 57 16 108/62 92 Room Air 0.0 10/08 1830 62 16 116/72 95 Room Air 2.0 10/08 1811 66 18 107/62 96 Room Air 2.0 10/08 1806 2.0 10/08 1804 90 Room Air 10/08 1734 98.4 58 20 109/67 94 Room Air 0.0 10/08 1715 98.4 71 20 111/67 99 Face Tent 13.0 10/08 1702 98.8 69 18 121/62 98 Face Tent 13.0 10/08 1647 98.8 73 16 127/68 100 Face Tent 13.0 10/08 1635 86 13 125/66 97 Face Tent 15.0 10/08 1630 99.3 80 10 128/86 97 Face Tent 15.0 I&O 10/08 0800 10/08 1600 10/09 0000 Intake Total 396 669 7070 Output Total 1010 450 Balance 455 -215 860 General Appearance Alert, Oriented X3, Cooperative, No acute distress Extremities In a short leg cast Plan Activity: PT consultation Diet: Advance to regular Medications/IV Plans: Stop IV fluids, Stop antibiotics Additional Comments: The patient has discussed with me that her dog was loose. I subsequently heard that a friend was going to come help her at her house. I discussed with the mattress spring encaser, bringing outpatient physical therapy and occupational therapy services to the home. I switched her from heparin anticoagulant to aspirin 325 mg twice daily. The physical therapist advised that the patient was not ready for discharge because she was not safe with the walking aide, yet. I explained to the patient that I would not discharge her until the therapists said that she can manage her get around her house with the walking aide that we could send her home with. I was twice told that the patient was anxious to go home and I twice told the nursing staff that she was anxious to go home but it was not yet certifiably safe to go home. I would not discharge her. If she leaves, it will be AGAINST MEDICAL ADVICE.
[2016-10-09 18:51] VITALS: BP 129/75
[2016-10-09 22:45] VITALS: BP 128/69
[2016-10-10 02:15] VITALS: BP 110/54
[2016-10-10 07:12] VITALS: BP 112/63
--- NOTE | 2016-10-10 07:25 | Progress Note ---
Subjective General Note Date: 10/10/2016 Admission Date: 10/08/2016 Hospital Day: 2 PCP: Norma Status: Stable. Advanced Directive: full code Room: 202 Patient had a relatively good night. Patient has been well pain control. She is still attempting the ambulate with utility's. Patient will be seen by physical therapy today. Patient does have added support at home. Constitutional Denies: Sweats. Respiratory Denies: SOB w/exertion. Cardiovascular Denies: Orthopnea. Musculoskeletal Foot Pain. Denies: Back Pain. Physical Exam Vital Signs / I&Os Vital Signs Date Time Temp Pulse Resp B/P Pulse O2 O2 Flow FiO2 Ox Delivery Rate 10/10 0712 98.8 63 20 112/63 92 Room Air 0.0 10/10 0215 98.4 62 17 110/54 90 Room Air 10/10 0158 Room Air 10/09 2245 98.8 78 18 128/69 94 Room Air 0.0 10/09 1851 98.4 72 23 129/75 93 Room Air 10/09 1630 Room Air 10/09 1438 98.8 77 20 133/67 93 Room Air 10/09 1137 98.4 64 115/56 93 Nasal 0.0 Cannula 10/09 0830 Nasal 2.0 Cannula 10/09 0800 2.0 I&O 10/09 0800 10/09 1600 06/01 0000 Intake Total 1639 1800 640 Output Total 1200 1050 Balance 1639 600 -410 General Appearance Cooperative, No acute distress Lungs Normal air movement Cardiovascular Normal S1 and S2, No murmurs, gallops, rubs Extremities right foot is casted; Assessment and Plan Problem List 1. Obstructive airway disease Plan Should maintain adequate control of airway. Follow-up with primary care to suggest alternatives to smoking. Avoiding inhalants which cause reactive airway changes. 2. Pain in right ankle Plan Injury to the right lower extremity secondary to fall. 3. Trimalleolar fracture of right ankle Plan Followed by orthopedics. Patient has good follow-up appointment with 4. Smoking Plan Encourage smoking cessation. Current status: Fair Anticipated discharge date: Today Anticipated discharge placement: discharge home Patient care time: Time spent in chart review, patient interview, physical exam, CPOE, and care documentation: 30 minutes Visit to patient today: 1 Complexity of care: mild
[2016-10-10] MEDS ORDERED: VICODIN EQUIVAL1 TAB PO (12:52)
[2016-10-10] MEDS ORDERED: ENTERIC COATED325 M1 PO (12:53)
[2016-10-10] MEDS ORDERED: LORAZEPAM0.5 MG PO (12:54)
--- NOTE | 2016-10-10 13:08 | Progress Note ---
Subjective General sHE FEELS COMFORATABLE WITH VICODIN FOR PAIN. No chest pain. Worked with PT today. Physical Exam Vital Signs / I&Os Vital Signs Date Time Temp Pulse Resp B/P Pulse O2 O2 Flow FiO2 Ox Delivery Rate 10/10 0847 Room Air 0.0 10/10 0712 98.8 63 20 112/63 92 Room Air 0.0 10/10 0215 98.4 62 17 110/54 90 Room Air 10/10 0158 Room Air 10/09 2245 98.8 78 18 128/69 94 Room Air 0.0 10/09 1851 98.4 72 23 129/75 93 Room Air 10/09 1630 Room Air 10/09 1438 98.8 77 20 133/67 93 Room Air I&O 10/09 0800 10/09 1600 10/10 0000 Intake Total 1639 1800 640 Output Total 1200 1050 Balance 1639 600 -410 General Appearance Alert, Oriented X3, Cooperative, No acute distress Extremities mild-moderate swelling and good active mobility of toes Plan Activity: Out of bed, Out of bed to chair Additional Comments: She will go home and do crab walk on both hand and left leg while sitting on stairs to go up and down. Discharge to homecare.
--- NOTE | 2016-10-18 10:50 | Discharge Summary ---
Discharge Summary Report Admit Date 10/07/16 Discharge Date 10/10/16 Admission Diagnosis Pain in the right ankle Obstructive airway disease Trimalleaolar Fracture; right ankle Smoking Discharge Diagnosis Pain in the right ankle Obstructive airway disease Trimalleaolar Fracture; right ankle Smoking Brief History See HPI 10/08/16. In brief this a 61yo female with a medical history of asthma along with a prolonged smoking history presenting with right ankle pain after stepping awkwardly and twisting the ankle. She was see in the [facility]; found to have right Trimalleaolar right ankle fracture consulted by orthopedic surgery and admitted under the hospitalist services. Hospital Course 61 yo WF who sustained a right trimalleaolar ankle fracture consulted by orthopedic surgery and admitted to the hospitalist services with ankle pain, obstructive airway disease, smoking history and right trimalleaolar right ankle fracture. Surgical repair of the right Trimalleaolar ankle fracture was completed within 12 hours from the time of the admission. The surgical procedure was without complications and reported as successful in stabilizing the fracture. She returned to the Gen/Surg medical floor in good condition. She maintained adequate pain control and her airway was notably stable without reactive reponsiveness during the hospitalizaiton. Smoking cessation encouraged and promoted nicotene replacement. Physical therapy was consulted and advised on fall risks, proper transitional movements and other ambulatory maneuvers including the approach to the stairway. She was discharged to home in a stable condition within/after 48 hours of transitional care. Appointments for orthopedics and primary care where scheduled for patient as an out patient. General Appearance Oriented X3, Cooperative Lungs Normal air movement Cardiovascular Normal S1, Normal S2, No murmurs Abdomen Soft Skin No Significant Lesions Psych/Mental Status Mood NL Lab/Imaging 1. C-arm fluoroscopy for ORIF performed by Discharge Instructions/Meds Ms. Andrade was discharged in stable condiition. Follow up was schedule and [facility]. Initiation of 325 mg ASA bid po. Discharged home on hydrocodone/ Acetaminophen 5/325 to be taken q6 hours as needed. Assumed to continue with the smoking cessaiton; given 24 mg Nicotene patch kit to use on patch daily Following primary care adivse on discharge medication was reviewed with the patient Also recommended and asthma action plan with exacerbation of the airway. Resume home Albuterol inhaler to be used every 4-6 hours as needed. E&M Codes Discharge: Inpt <30 min spent/15181
== END 2016-10-10 14:32 | disposition home health service (06) ==
LOC: ED SRH 20:46 → ACUTE2 SRH 23:48 → TRANS SRH 23:48 → ACUTE2 SRH 10-08 01:05
PROVIDERS: Orthopaedic Surgery; ADMIT Student in an Organized Health Care Education/Training Program
PROC: 0QSJXZZ Reposition Right Fibula, External Approach (ICD-10-PCS; 2016-10-07)
PROC: 0QSGXZZ Reposition Right Tibia, External Approach (ICD-10-PCS; 2016-10-07)
PROC: 3E0234Z Introduction of Serum, Toxoid and Vaccine into Muscle, Percutaneous Approach (ICD-10-PCS; 2016-10-07)
PROC: 0QSJ04Z Reposition Right Fibula with Internal Fixation Device, Open Approach (ICD-10-PCS; principal; 2016-10-08 13:15)
PROC: 0QSG04Z Reposition Right Tibia with Internal Fixation Device, Open Approach (ICD-10-PCS; principal; 2016-10-08 13:15)
DX: S82.851A Displaced trimalleolar fracture of right lower leg, initial encounter for closed fracture (principal); W01.0XXA Fall on same level from slipping, tripping and stumbling without subsequent striking against object, initial encounter; Y93.H2 Activity, gardening and landscaping; Y92.007 Garden or yard of unspecified non-institutional (private) residence as the place of occurrence of the external cause; Y99.8 Other external cause status; Z23 Encounter for immunization; R09.02 Hypoxemia; T41.1X5A Adverse effect of intravenous anesthetics, initial encounter; F17.210 Nicotine dependence, cigarettes, uncomplicated; J44.9 Chronic obstructive pulmonary disease, unspecified; Z87.81 Personal history of (healed) traumatic fracture